=== PATIENT | female | born 1995 | race Caucasian/White ===

== ENCOUNTER 2020-04-12 10:12 | Outpatient (CLI) | payer BC ==
[~2020-04-12] VITALS: Ht 162.6 cm; Wt 67.6 kg
[2020-04-12] MEDS ORDERED: albuterol 2.5 MG/3 ML nebule NEB ONE (10:45)
== END 2020-04-12 23:59 | disposition home or self-care (01) ==
LOC: RT 10:12
PROVIDERS: ATTEND Family Medicine
DX: R06.02 Shortness of breath (principal)
CPT/HCPCS: 94060; 94729; 94760

== ENCOUNTER 2021-11-21 07:56 | Outpatient (CLI) | payer BC | END 2021-11-21 23:59 | disposition home or self-care (01) | LOC: RAD 07:56 | PROVIDERS: ATTEND Family Medicine | DX: R10.9 Unspecified abdominal pain (principal); M54.50 Low back pain, unspecified; K58.9 Irritable bowel syndrome, unspecified | CPT/HCPCS: 76700; 76856; 93976 ==

== ENCOUNTER 2021-11-25 09:16 | Outpatient (CLI) | payer BC ==
[~2021-11-25] VITALS: Ht 162.6 cm; Wt 75.4 kg
[2021-11-25] MEDS ORDERED: sincalide inj 1.5 MCG in normal saline 100ml IV soln 98.5 ML IV ONE (10:50)
--- NOTE | 2021-11-25 11:44 | NUR ---
[facility] [facility] [place] [facility] [place] [facility], pt is resting quietly, resp even and unlabored, skin p/w/d, IV to rt forearm is patent and clear
== END 2021-11-25 23:59 | disposition home or self-care (01) ==
LOC: RAD 09:16
PROVIDERS: ATTEND Family Medicine
DX: K82.8 Other specified diseases of gallbladder (principal)
CPT/HCPCS: 78227; A9537; J2805; J3490